=== PATIENT | male | born 1980 | race Asian ===

== ENCOUNTER 2016-05-16 16:59 | Outpatient (CLI) | payer OTHER ==
[2016-05-16 18:29] LABS: ALBUMIN 4.3 g/dL (3.4-4.8); BILIRUBIN,DIRECT 0.1 mg/dL (0.0-0.3); TOTAL BILIRUBIN 0.2 mg/dL (0.0-1.0); TOTAL PROTEIN, SERUM 8.6 g/dL (6.4-8.3)
[2016-05-18 17:34] LABS: HEPATITIS B SURFACE AG Positive (Negative)
[2016-05-19 13:14] LABS: HEPATITIS Be AB Negative (Negative)
[2016-05-21 12:35] LABS: HEPATITIS Be AG Positive (Negative)
== END 2016-05-16 20:06 | disposition home or self-care (01) ==
LOC: SLB 16:59
DX: B19.10 Unspecified viral hepatitis B without hepatic coma (principal)
CPT/HCPCS: 36415; 80076; 86706; 86707; 87340; 87350

== ENCOUNTER 2016-12-08 07:35 | Outpatient (CLI) | payer OTHER ==
[2016-12-08 08:39] LABS: ALBUMIN 4.2 g/dL (3.4-4.8); CALCIUM 9.6 mg/dL (8.4-11.0); CREATININE 1.22 mg/dL (0.55-1.30); POTASSIUM 4.6 mmol/L (3.5-5.1); THYROID STIMULATING HORMONE 1.1 uIu/mL (0.34-4.82); TOTAL BILIRUBIN 0.6 mg/dL (0.0-1.0)
[2016-12-08 08:40] LABS: FREE T4 (FREE THYROXINE) 0.9 ng/dL (0.6-1.6)
[2016-12-11 14:00] LABS: HEMOGLOBIN A1C 5.6 % (4.8-5.6)
== END 2016-12-08 20:16 | disposition home or self-care (01) ==
LOC: SLB 07:35
PROVIDERS: ATTEND Internal Medicine
DX: Z00.01 Encounter for general adult medical examination with abnormal findings (principal); B19.10 Unspecified viral hepatitis B without hepatic coma; I10 Essential (primary) hypertension; E66.9 Obesity, unspecified
CPT/HCPCS: 36415; 80053; 80061; 82306; 83036; 84439; 84443-TC

== ENCOUNTER 2017-09-21 09:26 | Outpatient (CLI) | payer OTHER ==
[2017-09-21 10:36] LABS: BASOPHILS # (AUTO) 0.1 K/uL (0.0-0.2); BASOPHILS % (AUTO) 1.7 % (0.0-2.0); EOSINOPHILS # (AUTO) 0.1 K/uL (0.0-0.4); EOSINOPHILS % (AUTO) 2.4 % (0.0-4.0); HEMATOCRIT 45.7 % (36-54); HEMOGLOBIN 15.8 g/dL (14.0-18.0); LYMPHOCYTES # (AUTO) 1.9 K/uL (1.0-5.5); LYMPHOCYTES % (AUTO) 30.7 % (20.5-51.5); MEAN CORPUSCULAR HEMOGLOBIN 32 pg (27-31); MEAN CORPUSCULAR HGB CONC 35 % (32-36); MEAN CORPUSCULAR VOLUME 94 fL (79.0-98.0); MONOCYTES # (AUTO) 0.3 K/uL (0.0-1.0); MONOCYTES % (AUTO) 4.7 % (1.7-9.3); NEUTROPHILS # (AUTO) 3.7 K/uL (1.8-7.7); NEUTROPHILS % (AUTO) 60.5 % (40.0-70.0); PLATELET COUNT (AUTO) 364 K/uL (130-430); RED BLOOD CELL COUNT(AUTO) 4.88 MIL/uL (4.2-6.2); RED CELL DISTRIBUTION WIDTH 12.5 % (9.0-15.0); WHITE BLOOD COUNT (AUTO) 6.1 K/uL (4.8-10.8)
[2017-09-21 11:15] LABS: ALBUMIN 3.8 g/dL (3.4-4.8); BILIRUBIN,DIRECT 0.1 mg/dL (0.0-0.3); TOTAL BILIRUBIN 0.3 mg/dL (0.0-1.0)
[2017-09-25 15:58] LABS: HEPATITIS B SURFACE AG Positive (Negative)
[2017-09-25 15:59] LABS: HEPATITIS B CORE AB, IgM Negative (Negative); HEPATITIS B CORE AB, TOTAL Positive (NEGATIVE)
[2017-09-25 16:00] LABS: HEPATITIS Be AB Negative; HEPATITIS Be AG Positive
== END 2017-09-21 21:52 | disposition home or self-care (01) ==
LOC: SUS 09:26
PROVIDERS: ATTEND Internal Medicine
DX: B19.10 Unspecified viral hepatitis B without hepatic coma (principal); I10 Essential (primary) hypertension
CPT/HCPCS: 36415; 76700-TC; 80076; 85025; 86704; 86705; 86706; 86707; 87340; 87350

== ENCOUNTER 2018-03-28 09:12 | Outpatient (CLI) | payer OTHER ==
[2018-03-28 10:22] LABS: BASOPHILS % (AUTO) 0.4 % (0.0-2.0); EOSINOPHILS # (AUTO) 0.1 K/uL (0.0-0.4); EOSINOPHILS % (AUTO) 1.7 % (0.0-4.0); HEMATOCRIT 45.5 % (36-54); HEMOGLOBIN 15.5 g/dL (14.0-18.0); LYMPHOCYTES # (AUTO) 2.2 K/uL (1.0-5.5); LYMPHOCYTES % (AUTO) 30.8 % (20.5-51.5); MEAN CORPUSCULAR HEMOGLOBIN 31 pg (27-31); MEAN CORPUSCULAR HGB CONC 34 % (32-36); MEAN CORPUSCULAR VOLUME 92 fL (79.0-98.0); MONOCYTES # (AUTO) 0.4 K/uL (0.0-1.0); MONOCYTES % (AUTO) 5.9 % (1.7-9.3); NEUTROPHILS # (AUTO) 4.5 K/uL (1.8-7.7); NEUTROPHILS % (AUTO) 61.2 % (40.0-70.0); PLATELET COUNT (AUTO) 414 K/uL (130-430); RED BLOOD CELL COUNT(AUTO) 4.93 MIL/uL (4.2-6.2); RED CELL DISTRIBUTION WIDTH 12.6 % (9.0-15.0); WHITE BLOOD COUNT (AUTO) 7.2 K/uL (4.8-10.8)
[2018-03-28 10:51] LABS: BILIRUBIN,DIRECT 0.1 mg/dL (0.0-0.3); CALCIUM 9.3 mg/dL (8.4-11.0); CREATININE 1.05 mg/dL (0.55-1.30); POTASSIUM 3.9 mmol/L (3.5-5.1); THYROID STIMULATING HORMONE 0.96 uIu/mL (0.34-4.82); TOTAL BILIRUBIN 0.6 mg/dL (0.0-1.0)
[2018-03-29 15:29] LABS: HEMOGLOBIN A1C 5.9 % (4.8-5.6)
== END 2018-03-28 19:00 | disposition home or self-care (01) ==
LOC: SLB 09:12
PROVIDERS: ATTEND Internal Medicine
DX: Z00.01 Encounter for general adult medical examination with abnormal findings (principal); B19.10 Unspecified viral hepatitis B without hepatic coma
CPT/HCPCS: 36415; 80053; 80061; 82248-TC; 82306; 83036; 84443-TC; 85025